=== PATIENT | male | born 1945 | race Caucasian/White ===

== ENCOUNTER 2016-06-21 08:00 | Inpatient (IN) | payer OTHER ==
[2016-06-14 12:54] VITALS: BMI 24.3
--- NOTE | 2016-06-21 07:40 | HP ---
Admitting History and Physical - Admission Chief Complaint: left knee osteoarthritis x years History of Present Illness: 71 year old male presents today in regard to his left knee. Longstanding history of left knee osteoarthritis. Patient complains of left knee pain, limited ROM and difficulty ambulating. Patient has failed conservative treatment including PO medication, activity modification and injections. Patient would like to proceed with a left total knee arthroplasty. - Past Medical History Cardiovascular: Yes: Hyperlipdemia - Past Surgical History Additional Past Surgical History: See written H&P in chart - Smoking History Smoking history: Former smoker Have you smoked in the past 12 months: No If you are a former smoker, when did you quit?: - Alcohol/Substance Use Hx Alcohol Use: No Home Medications - Allergies Allergies/Adverse Reactions: Allergies Allergy/AdvReac Type Severity Reaction Status Date / Time No Known Drug Allergies Allergy Verified 06/14/16 12:45 - Home Medications Home Medications: Ambulatory Orders Atorvastatin Ca [Lipitor] 40 mg PO HS 06/14/16 Ibuprofen [Motrin -] 400 mg PO ASDIR PRN 06/14/16 Review of Systems - Review of Systems Musculoskeletal: reports: Crepitus (left knee), Decreased ROM, Joint Pain, Joint Swelling Physical Examination Constitutional: Yes: Well Nourished, No Distress Eyes: Yes: Conjunctiva Clear HENT: Yes: Atraumatic, Normocephalic Neck: Yes: Supple Cardiovascular: Yes: Regular Rate and Rhythm Respiratory: Yes: Regular Gastrointestinal: Yes: Soft ...Rectal Exam: Yes: Deferred Musculoskeletal: Yes: Joint Stiffness, Joint Swelling, Other (Limited ROM left knee) Assessment/Plan 71 year old male with longstanding left knee osteoarthritis. Patient has failed conservative treatment. Proceed with a left total knee arthroplasty.
[2016-06-21] MEDS ORDERED: GABAPENTIN 300 MG CAPSULE (FP) PO ONE (08:34)
[2016-06-21] MEDS ORDERED: oxyCODONE HCL 10 MG SUSTAINED ACTING TABLET PO ONE (08:34)
[2016-06-21] MEDS ORDERED: CELECOXIB 200 MG CAPSULE PO ONE (08:34)
[2016-06-21] MEDS ORDERED: ROPIVICAINE 0.2%/MORPH PF/KETOROLAC - 51ML DISP.SYRINGE IA ONE ×2 (08:34→09:50)
[2016-06-21] MEDS ORDERED: TRANEXAMIC ACID 1000 MG/10 ML VIAL IVPUSH ONE (08:34)
[2016-06-21] MEDS ORDERED: CEFAZOLIN 1 GM/D5W 50 ML IVPB ONE (08:34)
[2016-06-21] MEDS ORDERED: oxyCODONE HCL 5 MG TABLET PO PRN (08:46)
[2016-06-21] MEDS ORDERED: ONDANSETRON 4 MG/2 ML VIAL IVPUSH PRN (08:46)
[2016-06-21] MEDS ORDERED: PROMETHAZINE HCL 25 MG/1 ML VIAL IVPUSH PRN (08:46)
[2016-06-21] MEDS ORDERED: MIDAZOLAM HCL 2 MG/2 ML SINGLE DOSE VIAL ONE (08:53)
[2016-06-21] MEDS ORDERED: LIDOCAINE 1% P/F 10 MG/ML VIAL ONE (08:54)
[2016-06-21] MEDS ORDERED: TRANEXAMIC ACID 1000 MG/10 ML VIAL ONE (08:56)
[2016-06-21] MEDS ORDERED: VANCOMYCIN 1,000 MG VIAL (RESTRICTED TO ID ONLY) ONE (08:56)
[2016-06-21] MEDS ORDERED: ceFAZolin SODIUM 1 GM VIAL ONE ×2 (08:56→10:31)
[2016-06-21] MEDS ORDERED: PROPOFOL 20 ML ONE ×5 (09:14)
[2016-06-21] MEDS ORDERED: DESFLURANE GAS 240 ML BOTTLE IH ONE (09:21)
[2016-06-21] MEDS ORDERED: BUPIVACAINE HCL/PF 0.5% (5MG/ML) 10 ML VIAL ONE (10:27)
[2016-06-21] MEDS ORDERED: LIDOCAINE HCL/PF 2% SDV 5ML VIAL ONE (10:30)
[2016-06-21] MEDS ORDERED: ROPIVACAINE 0.2% 400ML 400 ML ML NR ONE (12:07)
--- NOTE | 2016-06-21 15:54 | OP ---
Operative Note - Note: Operative Date: 06/21/16 Pre-Operative Diagnosis: left knee OA Operation: left TKA Post-Operative Diagnosis: Same as Pre-op Surgeon: Shelton Benson Rental Car Ferry Driver: Suyapa Faye Anesthesia: Spinal Estimated Blood Loss (mls): 100
[2016-06-21] MEDS ORDERED: MAG HYDROX/AL HYDROX/SIMETH 30 ML UNIT-DOSE CUP PO PRN (15:56)
[2016-06-21] MEDS ORDERED: MAGNESIUM HYDROX 2400MG/30ML ORAL SUSPENSION 30 ML CUP PO PRN (15:56)
[2016-06-21] MEDS ORDERED: ONDANSETRON 4 MG/2 ML VIAL IVPB PRN (15:56)
[2016-06-21] MEDS: ACETAMINOPHEN 325 MG TABLET (FP) PO SCH ×2 (16:00→21:43)
[2016-06-21] MEDS ORDERED: LACTATED RINGERS SOLUTION 1,000 ML IV SCH (16:00)
[2016-06-21] MEDS: traMADol HCL 50 MG TABLET PO SCH ×2 (16:00→21:47)
[2016-06-21] MEDS: KETOROLAC TROMETHAMINE 30 MG/1 ML VIAL IVPUSH SCH ×2 (16:02→21:48)
[2016-06-21] MEDS ORDERED: traMADol HCL 50 MG TABLET ONE (16:46)
[2016-06-21] MEDS ORDERED: KETOROLAC TROMETHAMINE 30 MG/1 ML VIAL ONE (16:46)
[2016-06-21] MEDS ORDERED: ACETAMINOPHEN 325 MG TABLET (FP) ONE (16:47)
[2016-06-21] MEDS ORDERED: CEFAZOLIN 1 GM/D5W 50 ML IVPB SCH (18:00)
[2016-06-21] MEDS: ASCORBIC ACID 500 MG TABLET (FP) PO SCH (21:42)
[2016-06-21] MEDS: SENNOSIDES/DOCUSATE COMBO (SENNA PLUS) TABLET (UD) PO SCH (21:47)
[2016-06-21] MEDS: ATORVASTATIN CA 40 MG TABLET (FP) PO SCH (21:47)
[2016-06-21] MEDS: GABAPENTIN 300 MG CAPSULE (FP) PO SCH (21:47)
[2016-06-21] MEDS: CEFAZOLIN 1 GM/D5W 50 ML IVPB SCH (21:48)
[2016-06-21] MEDS ORDERED: GABAPENTIN 300 MG CAPSULE (FP) PO SCH (22:00)
[2016-06-22] MEDS: CEFAZOLIN 1 GM/D5W 50 ML IVPB SCH (03:20)
[2016-06-22] MEDS: KETOROLAC TROMETHAMINE 30 MG/1 ML VIAL IVPUSH SCH ×2 (04:17→09:41)
[2016-06-22] MEDS: traMADol HCL 50 MG TABLET PO SCH ×4 (04:18→21:54)
[2016-06-22] MEDS: ACETAMINOPHEN 325 MG TABLET (FP) PO SCH ×5 (04:19→21:53)
[2016-06-22] MEDS: ASPIRIN 325 MG TABLET PO SCH (08:02)
[2016-06-22] MEDS: oxyCODONE HCL 5 MG TABLET PO PRN ×3 (08:03→17:59)
--- NOTE | 2016-06-22 08:45 | PN ---
Progress Note (short form) - Note Progress Note: Pt seen and examined. Comfortable. No complaints. AVSS Selected Entries 06/22/16 06/22/16 06:00 06:20 Temperature 97.4 F L Pulse Rate 81 Respiratory 20 Rate Blood Pressure 120/66 O2 Sat by Pulse 98 Oximetry (%) Oxygen Delivery Nasal Cannula Method Laboratory Tests 06/22/16 06/22/16 07:32 07:32 WBC Pending Sodium Pending Gen: NAD LLE: c/d/i, NVID A/P 71yo male POD#1 s/p L TKA 1. PT/OOB - WBAT LLE 2. Plan for d/c home tomorrow
[2016-06-22 08:59] LABS: CALCIUM 8.8 mg/dl (8.4-10.2); CREATININE 0.8 mg/dl (0.6-1.3)
[2016-06-22] MEDS: MULTIVITAMINS (DAILY MVI) TABLET (FP) PO SCH (09:35)
[2016-06-22] MEDS: GABAPENTIN 300 MG CAPSULE (FP) PO SCH ×2 (09:35→21:52)
[2016-06-22] MEDS: CELECOXIB 200 MG CAPSULE PO SCH (09:35)
[2016-06-22] MEDS: PANTOPRAZOLE 40 MG TABLET (FP) PO SCH (09:35)
[2016-06-22] MEDS: SENNOSIDES/DOCUSATE COMBO (SENNA PLUS) TABLET (UD) PO SCH ×2 (09:36→21:53)
[2016-06-22] MEDS: ASCORBIC ACID 500 MG TABLET (FP) PO SCH ×2 (09:36→21:54)
[2016-06-22] MEDS: oxyCODONE HCL 10 MG SUSTAINED ACTING TABLET PO SCH ×3 (09:37→21:52)
[2016-06-22 09:44] LABS: MCH 31.6 pg (25.7-33.7); MCHC 34.6 g/dl (32.0-35.9); MEAN CELL VOLUME 91.4 fl (80-96); MEAN PLT VOLUME 7.1 fl (7.5-11.1); PLATELET COUNT 226 K/MM3 (134-434); RDW 12.6 % (11.9-15.9)
--- NOTE | 2016-06-22 10:50 | PN ---
Progress Note (short form) - Note Progress Note: ANESTHESIA POST-OP CHECK 71M s/p left total knee replacement with adductor canal + tibial nerve blocks and spinal anesthesia, POD #1. No acute complaints, denies N/V, backache, headache. Tolerating PO, voiding, ambulating, pain 2-3/10 and tolerable. Vital Signs Temperature 97.4 F L 06/22/16 06:00 Pulse Rate 81 06/22/16 06:00 Respiratory Rate 20 06/22/16 06:00 Blood Pressure 120/66 06/22/16 06:00 O2 Sat by Pulse Oximetry (%) 98 06/22/16 06:20 Active Medications Acetaminophen (Tylenol -) 650 mg PO Q6H [facility] Stop: 06/24/16 08:59 Last Admin: 06/22/16 04:19 Dose: 650 mg Al Hydroxide/Mg Hydroxide (Mylanta Oral Suspension -) 30 ml PO Q4H PRN PRN Reason: DYSPEPSIA Ascorbic Acid (Vitamin C -) 500 mg PO BID [facility] Last Admin: 06/22/16 09:36 Dose: 500 mg Aspirin (Asa -) 325 mg PO DAILY@0800 [facility] Last Admin: 06/22/16 08:02 Dose: 325 mg Atorvastatin Calcium (Lipitor -) 40 mg PO HS [facility] Last Admin: 06/21/16 21:47 Dose: 40 mg Celecoxib (Celebrex -) 200 mg PO DAILY [facility] Last Admin: 06/22/16 09:35 Dose: 200 mg Fentanyl (Sublimaze Injection -) 50 mcg IVPUSH [id number] PRN PRN Reason: PAIN Stop: 06/24/16 08:47 Gabapentin (Neurontin -) 300 mg PO BID [facility] Last Admin: 06/22/16 09:35 Dose: 300 mg Lactated Ringer's (Lactated Ringers Solution) 1,000 mls @ 125 mls/hr IV ASDIR [facility] Magnesium Hydroxide (Milk Of Magnesia -) 30 ml PO PRN PRN PRN Reason: CONSTIPATION Multivitamins/Minerals/Vitamin C (Tab-A-Vit -) 1 tab PO DAILY [facility] Last Admin: 06/22/16 09:35 Dose: 1 tab Ondansetron HCl (Zofran Injection) 4 mg IVPB Q6H PRN PRN Reason: NAUSEA Oxycodone HCl (Roxicodone -) 5 mg PO Q4H PRN PRN Reason: PAIN Stop: 06/24/16 08:47 Oxycodone HCl (Roxicodone -) 10 mg PO Q4H PRN PRN Reason: PAIN Stop: 06/24/16 08:47 Last Admin: 06/22/16 08:03 Dose: 10 mg Oxycodone HCl (Oxycontin -) 10 mg PO BID [facility] Stop: 06/24/16 12:06 Last Admin: 06/22/16 09:37 Dose: 10 mg Pantoprazole Sodium (Protonix -) 40 mg PO DAILY [facility] Last Admin: 06/22/16 09:35 Dose: 40 mg Senna/Docusate Sodium (Pericolace -) 1 tablet PO BID [facility] Last Admin: 06/22/16 09:36 Dose: 1 tablet Tramadol HCl (Ultram -) 50 mg PO Q6H [facility] Last Admin: 06/22/16 09:35 Dose: 50 mg Gen: Awake, alert Adductor canal catheter site clean, dry . On-Q pump line broke. New on-Q to be attached. No apparent anesthesia complications. Pain well controlled. Continue nerve catheter.
[2016-06-22] MEDS: LACTATED RINGERS SOLUTION 1,000 ML IV SCH (12:10)
--- NOTE | 2016-06-22 16:31 | SPEC ---
DATE OF OPERATION: 06/21/2016 PREOPERATIVE DIAGNOSIS: Left knee osteoarthritis. POSTOPERATIVE DIAGNOSIS: Left knee osteoarthritis. PROCEDURE: Left total knee replacement. ATTENDING: Mitchell Youngblood M.D. THEATRE ARTS PROFESSOR: Antoni Alanis ANESTHESIA: Spinal plus sedation. ESTIMATED BLOOD LOSS: 100 mL. COMPLICATIONS: None. SPECIMENS: Resected bone was sent for pathology analysis. DISPOSITION: The patient was transferred to the PACU in stable condition. IMPLANTS USED: [employer] Tri[employer]lon size 5 femoral components, size 6 tibial component, 35-mm patellar component, and 9-mm posterior stabilized polyethylene component. INDICATION: This is a 71-year-old male who presents to the office with his son complaining of severe left knee pain for several years. He had his diagnosis of severe osteoarthritis confirmed with x-rays and MRI and had been treated nonoperatively with injections, medications, and physical therapy. He continued to have severe pain and difficulty with ambulation. He was indicated for a left total knee replacement. The risks, benefits, and alternatives to the procedure were explained to the patient and his son in great detail, and they elected to proceed with the surgery. On the day of surgery, the patient was taken to the operating room and placed on the OR table. Spinal anesthesia was administered by the anesthesiologist. The patient was then positioned supine on the table and all bony prominences were padded. A nonsterile tourniquet was placed on the proximal thigh. The knee was then prepped and draped in the usual sterile fashion and intravenous antibiotics were given for infection prophylaxis. A surgical time-out was then performed with the team, and the patients identity, procedure, side, availability of implants, and the administration of antibiotics was confirmed. The leg was then elevated and exsanguinated, and the tourniquet was inflated. With the knee flexed, a midline incision was made and carried down through the subcutaneous fat to the underlying retinaculum. A medial parapatellar arthrotomy was performed. This was followed by a subperiosteal dissection of the tissue off the proximal, medial tibia. A portion of fat pad was removed from under the patellar tendon, and a small portion of fat was excised off the distal supracondylar femur. The knee was then flexed further and the anterior horn of the lateral meniscus was released from the midline. Next, the anterior and posterior cruciate ligaments were transected. Osteophytes were removed from both the femur and tibia. Grade 4 changes were noted diffusely throughout the knee. Hohmann retractors were then placed around the distal femur. The starting drill was used to enter the intramedullary canal. The starting point had been chosen by checking the radiographs and anatomy. Proper alignment and intramedullary placement was then confirmed by placing the long narrow terra into the femur. Next, the distal femoral cutting guide was adjusted to 6 degrees of valgus and pinned to the femur. The bone resection was assessed using an марина-wing. An approximately 10mm distal cut was made and the cut pieces measured. Once this was complete, the sizing guide was used to determine which size femoral component should be used. Next, the appropriately sized 4-in-1 cutting block was then placed at the correct amount of external rotation and the марина wing was used to assure that there would be no notching of the anterior cortex of the femur. Once this was done, Hohmann retractors were used to protect the medial and lateral collateral ligaments, and all appropriate bone cuts were made. Attention was then turned to the tibia. Hohmann retractors were used to translate the tibia anteriorly and protect the collateral ligaments. The medial and lateral menisci were removed. The extramedullary tibial alignment guide was then placed and adjusted for rotation, varus/valgus, and slope. The height of the cutting block was adjusted to the level of the desired bone resection and then pinned in place. The proximal tibia was then cut with a saw and the bone was removed and measured. Once this was completed, trial components were placed and the knee was taken through a full range of motion. Soft tissue balance was assessed in both flexion and extension and found to be appropriate. The knee was stable throughout the full range of motion. The knee was then put into extension and the patella everted. The synovium around the patella was circumscribed with electrocautery. A caliper was used to measure the patellar thickness and a saw was then used to resect the patella at the chondro-osseous junction. The cut surface was then sized and drilled for the appropriate patellar button, with care taken to medialize it. A trial patella was then placed and the knee was again taken through a full range of motion. The knee was found to have both good balance and good patellar tracking. All of the components were removed except the tibial base plate. The appropriate instrumentation was used to drill and punch the proximal tibia for the keel of the final component. All bony surfaces were then cleaned with pulsatile lavage and dried. Bone cement was then prepared on the back table, and final components were cemented in place in the usual fashion. Extruded cement was removed. The polyethylene trial was placed, the knee was put into extension, and axial pressure was applied for compression while the cement hardened. The patellar button was similarly cemented into place. Once the cement had hardened, the knee was taken through a full range of motion to assess stability, balance, and patellar tracking. This was found to be optimal and the trial polyethylene was exchanged for the appropriately sized real implant. The wound was then thoroughly irrigated with normal saline. No. 1 Polysorb and 0 VLoc 180 barbed sutures were used to close the arthrotomy. No. 1 Polysorb and 2-0 Polysorb sutures were used in the subcutaneous tissues. The skin was closed using both 3-0 VLoc 90 suture in a running subcuticular fashion and SwiftSet skin adhesive. Once this was completed a sterile Aquacel dressing and compressive Antonio-wrap was applied. The tourniquet was then deflated and the patient was awakened and taken to the PACU in stable condition. MITCHELL YOUNGBLOOD M.D. [id number]
[2016-06-22] MEDS: ATORVASTATIN CA 40 MG TABLET (FP) PO SCH (21:52)
[2016-06-23] MEDS: ACETAMINOPHEN 325 MG TABLET (FP) PO SCH ×2 (04:00→09:15)
[2016-06-23] MEDS: traMADol HCL 50 MG TABLET PO SCH ×2 (04:18→09:15)
[2016-06-23] MEDS: oxyCODONE HCL 5 MG TABLET PO PRN (06:10)
[2016-06-23] MEDS: ASPIRIN 325 MG TABLET PO SCH (08:14)
[2016-06-23 08:27] LABS: MCH 31.1 pg (25.7-33.7); MCHC 33.5 g/dl (32.0-35.9); MEAN CELL VOLUME 92.9 fl (80-96); MEAN PLT VOLUME 7.4 fl (7.5-11.1); PLATELET COUNT 197 K/MM3 (134-434); RDW 11.9 % (11.9-15.9); WHITE BLOOD COUNT 7.6 K/mm3 (4.0-10.0)
[2016-06-23 08:42] LABS: CALCIUM 8.3 mg/dl (8.4-10.2); CREATININE 0.7 mg/dl (0.6-1.3)
[2016-06-23] MEDS: PANTOPRAZOLE 40 MG TABLET (FP) PO SCH (09:14)
[2016-06-23] MEDS: ASCORBIC ACID 500 MG TABLET (FP) PO SCH (09:14)
[2016-06-23] MEDS: LACTATED RINGERS SOLUTION 1,000 ML IV SCH (09:15)
[2016-06-23] MEDS: GABAPENTIN 300 MG CAPSULE (FP) PO SCH (09:15)
[2016-06-23] MEDS: oxyCODONE HCL 10 MG SUSTAINED ACTING TABLET PO SCH (09:15)
[2016-06-23] MEDS: MULTIVITAMINS (DAILY MVI) TABLET (FP) PO SCH (09:15)
[2016-06-23] MEDS: CELECOXIB 200 MG CAPSULE PO SCH (09:15)
[2016-06-23] MEDS: SENNOSIDES/DOCUSATE COMBO (SENNA PLUS) TABLET (UD) PO SCH (09:15)
--- NOTE | 2016-06-23 09:38 | PN ---
Progress Note (short form) - Note Progress Note: Pt seen and examined. Comfortable. No complaints. AVSS Selected Entries 06/22/16 06/23/16 06/23/16 22:42 06:00 06:16 Temperature 99.0 F Pulse Rate 77 Respiratory 19 Rate Respiratory Depth Respiratory Effort Blood Pressure 110/65 O2 Sat by Pulse 95 90 L Oximetry (%) Oxygen Delivery Room Air Room Air Method 06/23/16 07:15 Temperature Pulse Rate Respiratory Rate Respiratory Normal Depth Respiratory Non-Labored Effort Blood Pressure O2 Sat by Pulse Oximetry (%) Oxygen Delivery Method Laboratory Tests 06/23/16 06/23/16 07:35 07:35 WBC 7.6 Hgb 11.6 L Hct 34.7 L Plt Count 197 Sodium 134 L Potassium 3.5 Chloride 104 Carbon Dioxide 25 Anion Gap 5 L BUN 15 D Creatinine 0.7 Random Glucose 129 H D Calcium 8.3 L Gen: NAD LLE: c/d/i, NVID A/P 71yo male POD#2 s/p L TKA 1. PT/OOB - WBAT LLE 2. d/c home today
[2016-06-23 11:17] VITALS: BP 110/60; PULSE 81; TEMP 98.7
--- NOTE | 2016-06-23 13:10 | PATH ---
Surgical Pathology Report Patient Name: KAROLYN SMITH [facility]. Rec. #: [id number] /Age/Gender: 1945 (Age: 71) / M Account: [id number] Location: [facility] MED-SURG Taken: 06/21/2016 Received: 06/21/2016 Reported: 06/23/2016 Physicians: Shelton Benson M.D. Specimen(s) Received BONE LEFT KNEE Clinical History Left knee osteoarthritis Final Diagnosis BONE AND SOFT TISSUE, LEFT KNEE, REPLACEMENT: DEGENERATIVE JOINT DISEASE. Electronically Signed Arnie Finley M.D. Gross Description Received in formalin, labeled "bone left knee," is a 13.0 x 11.0 x 1.8 cm aggregate of multiple dahl, irregular portions of bone and soft tissue. There is a 1.7 cm in greatest dimension area of eburnation identified. The remaining articular surfaces are dahl-brown and diffusely granular. The underlying trabecular bone is yellow and hard. Carpet Installer Helper sections are submitted in one cassette, following decalcification. 06/22/201606/22/2016
== END 2016-06-23 11:53 | disposition home health service (06) | DRG 470 ==
LOC: FM/S 08:16
PROVIDERS: ADMIT Student in an Organized Health Care Education/Training Program; ATTEND Student in an Organized Health Care Education/Training Program
PROC: 0SRD0J9 Replacement of Left Knee Joint with Synthetic Substitute, Cemented, Open Approach (ICD-10-PCS; principal; 2016-06-21 13:07)
DX: M17.12 Unilateral primary osteoarthritis, left knee (principal); E78.5 Hyperlipidemia, unspecified; Z87.891 Personal history of nicotine dependence
CPT/HCPCS: 36415; 73560-TC-LT; 80048; 85027; 88305-TC; 88311-TC; 94010; 94760; 97116-GP; 97162-GP